=== PATIENT | female | born 1955 | race Two or more races ===

== ENCOUNTER 2020-03-26 09:04 | Inpatient (IN) | payer MEDICAID ==
[~2020-03-26] VITALS: Ht 157.5 cm; Wt 62.1 kg
--- NOTE | 2020-03-26 09:10 | NUR ---
BIB RA 41 FROM HOME,WORSENING BODY PAIN X 2 WEEKS, COUGHING DURING TRIAGE. iv access started. blood draw done sent to lab. seen by
--- NOTE | 2020-03-26 09:11 | NUR ---
placed on 2l nc satting at 98%
[2020-03-26] MEDS ORDERED: IBUPROFEN 400 MG TABLET PO ONE (09:30)
[2020-03-26] MEDS ORDERED: ACETAMINOPHEN 650 MG/SUPP.RECT RC ONE ×2 (09:30→09:32)
[2020-03-26] MEDS ORDERED: IBUPROFEN 400 MG TABLET ONE (09:32)
--- NOTE | 2020-03-26 09:45 | NUR ---
rapid influenza and covid swab done. sent to lab.
--- NOTE | 2020-03-26 10:05 | NUR ---
pt stated she is unable to provide urine specimen at the moment
[2020-03-26 10:13] LABS: BASOPHILS % (AUTO) 0.1 % (0.0-2.0); HEMATOCRIT 31 % (33-45); HEMOGLOBIN 10.1 g/dL (11.5-14.8); LYMPHOCYTES # (AUTO) 0.9 /CMM (0.8-4.8); LYMPHOCYTES % (AUTO) 5.5 % (20.0-44.0); MEAN CORPUSCULAR HGB CONC 33 g/dl (31.0-36.0); MEAN CORPUSCULAR VOLUME 91 fL (82-100); MONOCYTES # (AUTO) 0.8 /CMM (0.1-1.30); MONOCYTES % (AUTO) 4.6 % (2.0-12.0); NEUTROPHILS # (AUTO) 14.6 /CMM (1.8-8.9); NEUTROPHILS % (AUTO) 89.8 % (43.0-81.0); PLATELET COUNT (AUTO) 228 /CMM (150-450); RED BLOOD CELL COUNT(AUTO) 3.41 MIL/uL (4.0-5.2); WHITE BLOOD COUNT (AUTO) 16.3 K/uL (4.3-11.0)
[2020-03-26 10:30] LABS: D-DIMER 0.61 mg/L(FEU (0.17-0.50)
[2020-03-26] MEDS ORDERED: ACETAMINOPHEN 325 MG TABLET PO ONE (10:30)
[2020-03-26] MEDS ORDERED: ACETAMINOPHEN 325 MG TABLET ONE (10:46)
[2020-03-26 10:51] LABS: CALCIUM, SERUM 8.2 mg/dL (8.5-10.1); CARBON DIOXIDE 29 mmol/L (21-32); CHLORIDE 101 mmol/L (98-107); CREATININE 0.9 mg/dL (0.6-1.3); GLUCOSE 155 mg/dL (74-106); POTASSIUM 4.4 mmol/L (3.5-5.1); SODIUM SERUM 135 mmol/L (136-145); UREA NITROGEN, BLOOD 21 mg/dL (7-18)
[2020-03-26 10:52] LABS: CREATINE KINASE, TOTAL 849 U/L (26-192); FERRITIN 126 ng/mL (8-388)
[2020-03-26 10:56] LABS: ALANINE AMINOTRANSFERASE 32 U/L (12-78); ALBUMIN 2.8 g/dL (3.4-5.0); ALKALINE PHOSPHATASE 68 U/L (46-116); ASPARTATE AMINOTRANSFERASE 47 U/L (15-37); B-TYPE NATRIURETIC PEPTIDE 1501 PG/ML (0-125); BILIRUBIN,TOTAL 0.3 mg/dL (0.2-1.0); TOTAL PROTEIN, SERUM 6.2 g/dL (6.4-8.2)
[2020-03-26] MEDS ORDERED: CEFTRIAXONE 1GM BAG (ER ONLY) 50 ML IV ONE ×2 (11:30→11:42)
[2020-03-26] MEDS ORDERED: AZITHROMYCIN 500 MG in IV D5W 250 ML IV ONE (11:30)
--- NOTE | 2020-03-26 12:07 | NUR ---
urine collected sent to lab
[2020-03-26] MEDS ORDERED: HYDR-500 PO (12:29)
[2020-03-26] MEDS ORDERED: GABA300C PO (12:29)
[2020-03-26] MEDS ORDERED: TRAZ-257 PO (12:29)
[2020-03-26] MEDS ORDERED: FLUO20CA42 PO (12:29)
[2020-03-26 12:37] LABS: C-REACTIVE PROTEIN 33.6 mg/dL (0.0-0.9)
--- NOTE | 2020-03-26 13:37 | NUR ---
covid antigen collected sent to lab
--- NOTE | 2020-03-26 14:38 | NUR ---
NEERU PRINGLE ([facility]) [phone].
--- NOTE | 2020-03-26 14:45 | NUR ---
CALLED NURSING SUP FOR TELE BED.
--- NOTE | 2020-03-26 15:24 | NUR ---
LAB RESULT: COVID POSITIVE.
--- NOTE | 2020-03-26 19:50 | NUR ---
ATTEMPTED TO CALL TO GIVE REPORT, STAFF STATES THAT THE NURSES WERE NOT NOTIFIED.
--- NOTE | 2020-03-26 20:02 | NUR ---
ATTEMPTED TO GIVE REPORT AGAIN, NURSE IS CURRENTLY DISCHARGING A PATIENT, NURSE WILL CALL ME.
--- NOTE | 2020-03-26 20:21 | NUR ---
REPORT GIVEN TO CAROLIN BUTT FOR MEGHA.
[2020-03-26] MEDS ORDERED: ZOLPIDEM TARTRATE 5 MG TABLET PO PRN (20:30)
[2020-03-26 20:40] VITALS: BP 163/74
--- NOTE | 2020-03-26 20:40 | NUR ---
RN ADMITTING NOTE: Received report from ED nurse, Denilson. Patient was brought to the unit via wheelchair. Patient able to ambulate to bed with steady gait. Patient breathing even and unlabored on room air. No SOB or acute respiratory distress noted. Patient alert and oriented x4, able to make needs known. Oriented patient to room and taught the use of call light. Noted IV access on right AC, 18 gauge, intact and patent. Safety measure in place, bed is in the lowest level, bed is locked, side rails x2 are up, and call light is within reach. Will continue to monitor.
--- NOTE | 2020-03-26 20:46 | NUR ---
PATIENT TAKEN UP TO ASSIGNED ROOM FOR MEGHA.
[2020-03-26 21:00] VITALS: BP 163/74
[2020-03-26] MEDS: hydrOXYzine PAMOATE 25 MG CAPSULE PO SCH (23:03)
[2020-03-26] MEDS: DEXAMETHASONE SOD PHOSPHATE 10 MG/ML VIAL IV SCH (23:03)
[2020-03-27] VITALS (7 sets, daily range): BP systolic 116–171; BP diastolic 50–83
[2020-03-27] MEDS: ACETAMINOPHEN 650 MG/20.3 ML UDC NG PRN ×2 (00:28→11:08)
--- NOTE | 2020-03-27 00:28 | NUR ---
Patient temperature 101. Administered PRN tylenol per MD order. Also applied cooling measures.
[2020-03-27 07:57] LABS: HEMATOCRIT 31 % (33-45); HEMOGLOBIN 10.5 g/dL (11.5-14.8); LYMPHOCYTES # (AUTO) 0.4 /CMM (0.8-4.8); LYMPHOCYTES % (AUTO) 4.8 % (20.0-44.0); MEAN CORPUSCULAR HGB CONC 33 g/dl (31.0-36.0); MEAN CORPUSCULAR VOLUME 90 fL (82-100); MONOCYTES # (AUTO) 0.3 /CMM (0.1-1.30); MONOCYTES % (AUTO) 3.2 % (2.0-12.0); NEUTROPHILS # (AUTO) 8.6 /CMM (1.8-8.9); PLATELET COUNT (AUTO) 230 /CMM (150-450); RED BLOOD CELL COUNT(AUTO) 3.49 MIL/uL (4.0-5.2); WHITE BLOOD COUNT (AUTO) 9.3 K/uL (4.3-11.0)
--- NOTE | 2020-03-27 08:34 | NUR ---
RN CLOSING NOTE: Patient in bed resting comfortably. Patient breathing even and unlabored, no SOB or acute respiratory distress noted. Safety measure is maintained, bed is in the lowest level, bed is locked, side rails x2 are up, and call light is within reach. Endorsed to morning RN.
[2020-03-27] MEDS ORDERED: CEFTRIAXONE 1 G in IV D5W 50 ML IV SCH (09:00)
[2020-03-27] MEDS ORDERED: AZITHROMYCIN 250 MG TABLET PO SCH (09:00)
[2020-03-27 09:13] LABS: ALBUMIN 2.6 g/dL (3.4-5.0); BILIRUBIN,TOTAL 0.3 mg/dL (0.2-1.0); CALCIUM, SERUM 8.3 mg/dL (8.5-10.1); CREATININE 0.8 mg/dL (0.6-1.3); POTASSIUM 4.5 mmol/L (3.5-5.1); TOTAL PROTEIN, SERUM 6.6 g/dL (6.4-8.2)
[2020-03-27] MEDS ORDERED: REMDESIVIR (CHARGED) 200 MG, *LOADING DOSE 1 EA in IV NS 0.9% 210 ML IV ONE (09:30)
[2020-03-27] MEDS: hydrOXYzine PAMOATE 25 MG CAPSULE PO SCH ×3 (09:55→17:25)
[2020-03-27] MEDS: GABAPENTIN 300 MG CAPSULE PO SCH ×3 (09:55→17:25)
[2020-03-27] MEDS: FLUOXETINE HCL 20 MG CAPSULE PO SCH (09:55)
[2020-03-27 10:11] LABS: C-REACTIVE PROTEIN 38.9 mg/dL (0.0-0.9)
--- NOTE | 2020-03-27 10:43 | NUR ---
RN NOTES CALLED PHARMACY STILL AWAITING FOR ROCEPHIN AND ZITHROMAX AVAILABILITY.
[2020-03-27] MEDS: AZITHROMYCIN 250 MG TABLET PO SCH (10:52)
[2020-03-27] MEDS: CEFTRIAXONE 1 G in IV D5W 50 ML IV SCH (12:12)
--- NOTE | 2020-03-27 19:23 | NUR ---
DENTAL TECHNICIAN METAL NOTES PATIENT RESTING COMFORTABLY IN BED, ASLEEP. BUT AROUSABLE TO VERBAL AND TACTILE STIMULI. HOB ELEVATED. DENIES ANY C/O PAIN NOR DISCOMFORT. NO S/S OF RESPIRATORY DISTRESS. REMAIN ON ROOM AIR WITH SPO2 94%. RIGHT AC SL # 18 INTACT AND PATENT. BED ALARM ON.CALL LIGHT WITHIN REACH. ABLE TO VERBALIZE NEEDS. IN NO APPARENT DISTRESS.
--- NOTE | 2020-03-27 20:02 | NUR ---
RN OPENING NOTE: Patient in bed sleeping comfortably. Patient is breathing even and unlabored on room air, no SOB or acute respiratory distress. Noted IV access on right AC, 18 gauge, patent and intact. Safety measure is in place, bed is in the lowest level, bed is locked, side rails x2 are up, and call light is within reach. Will continue to monitor.
--- NOTE | 2020-03-27 21:52 | NUR ---
Critical lab resulted. CK-MB 7.1. Patient denies any pain or discomfort at this time. BP 138/50, HR 77, O2Sat 94%. Notified MD of lab result and assessment.
[2020-03-27] MEDS: DEXAMETHASONE SOD PHOSPHATE 10 MG/ML VIAL IV SCH (22:35)
--- NOTE | 2020-03-27 23:01 | NUR ---
Per , Dr. Zimmer, order total CPK in the AM lab. Read order back and carried out.
[2020-03-28] VITALS: BP 157/75
[2020-03-28] MEDS: ACETAMINOPHEN 650 MG/20.3 ML UDC NG PRN ×2 (00:24→11:04)
--- NOTE | 2020-03-28 00:24 | NUR ---
Patient is complaining of generalized body ache. Patient rates pain a 3 on a 0-10 numerical scale. Administered PRN Tylenol per MD order. Will continue to monitor.
[2020-03-28 04:00] VITALS: BP 150/71
[2020-03-28 06:54] LABS: BASOPHILS % (AUTO) 0.1 % (0.0-2.0); HEMATOCRIT 34 % (33-45); HEMOGLOBIN 11.2 g/dL (11.5-14.8); LYMPHOCYTES # (AUTO) 0.8 /CMM (0.8-4.8); LYMPHOCYTES % (AUTO) 8.8 % (20.0-44.0); MEAN CORPUSCULAR HGB CONC 33 g/dl (31.0-36.0); MEAN CORPUSCULAR VOLUME 90 fL (82-100); MONOCYTES # (AUTO) 0.6 /CMM (0.1-1.30); MONOCYTES % (AUTO) 6.6 % (2.0-12.0); NEUTROPHILS # (AUTO) 7.2 /CMM (1.8-8.9); NEUTROPHILS % (AUTO) 84.5 % (43.0-81.0); PLATELET COUNT (AUTO) 284 /CMM (150-450); WHITE BLOOD COUNT (AUTO) 8.6 K/uL (4.3-11.0)
--- NOTE | 2020-03-28 07:35 | NUR ---
RN NOTES RECEIVED PATIENT IN BED, ASLEEP, AROUSABLE TO VERBAL AND TACTILE STIMULI. NO SOB. RESTING COMFORTABLY IN BED. ABLE TO VERNALIZE NEEDS. REMAINS STABLE AT THIS TIME.
[2020-03-28 07:50] LABS: C-REACTIVE PROTEIN 20.6 mg/dL (0.0-0.9)
--- NOTE | 2020-03-28 07:56 | NUR ---
RN CLOSING NOTE: Patient resting in bed comfortably. Patient is breathing even and unlabored. No SOB or acute respiratory distress noted. Safety measure maintained; bed is in the lowest level, bed is locked, alarm is on, side rails x2 are up, and call light is within reach. Endorsed to AM nurse.
[2020-03-28 08:00] VITALS: BP 165/85
[2020-03-28 08:23] LABS: ALBUMIN 2.5 g/dL (3.4-5.0); BILIRUBIN,TOTAL 0.2 mg/dL (0.2-1.0); CALCIUM, SERUM 8.5 mg/dL (8.5-10.1); CREATININE 0.9 mg/dL (0.6-1.3); POTASSIUM 4.5 mmol/L (3.5-5.1); TOTAL PROTEIN, SERUM 6.6 g/dL (6.4-8.2)
[2020-03-28] MEDS: AZITHROMYCIN 250 MG TABLET PO SCH (09:11)
[2020-03-28] MEDS: FLUOXETINE HCL 20 MG CAPSULE PO SCH (09:11)
[2020-03-28] MEDS: GABAPENTIN 300 MG CAPSULE PO SCH ×3 (09:11→17:00)
[2020-03-28] MEDS: hydrOXYzine PAMOATE 25 MG CAPSULE PO SCH ×3 (09:12→17:00)
[2020-03-28] MEDS ORDERED: REMDESIVIR (CHARGED) 100 MG in IV NS 0.9% 230 ML IV SCH (09:30)
[2020-03-28] MEDS: CEFTRIAXONE 1 G in IV D5W 50 ML IV SCH (12:00)
[2020-03-28] MEDS: ENOXAPARIN SODIUM 40 MG/0.4 ML DISP.SYRIN SQ SCH (14:30)
[2020-03-28 16:00] VITALS: BP 159/89
--- NOTE | 2020-03-28 19:45 | NUR ---
RETAIL CLIENT SOLUTIONS ANALYST NOTES PATIENT RESTING COMFORTABLY IN BED, ASLEEP. BUT AROUSABLE TO VERBAL AND TACTILE STIMULI. HOB ELEVATED. DENIES ANY C/O PAIN NOR DISCOMFORT. NO S/S OF RESPIRATORY DISTRESS. REMAIN ON ROOM AIR WITH SPO2 94%. RIGHT AC SL # 18 INTACT AND PATENT. BED ALARM ON.CALL LIGHT WITHIN REACH. ABLE TO VERBALIZE NEEDS. IN NO APPARENT DISTRESS.
[2020-03-28 20:00] VITALS: BP 162/81
--- NOTE | 2020-03-28 20:57 | NUR ---
RN OPENING NOTES PATIENT RECEIVED RESTING IN BED A/O X 4. STABLE ON RA WITH BREATHING EVEN AND UNLABORED, NO SOB NOTED. NO SIGNS OF ACUTE DISTRESS. NO COMPLAINTS OF PAIN OR DISCOMFORT AT THE MOMENT. IV LOCATED ON R AC #18 PATENT AND INTACT. SAFETY PRECAUTIONS IN PLACE WITH BED IN LOWEST POSITION, CALL LIGHT WITHIN REACH, BREAKS ON, SIDE RAILS UP.
[2020-03-28] MEDS: TRAZODONE 50 MG TABLET PO PRN (21:15)
[2020-03-28] MEDS: DEXAMETHASONE SOD PHOSPHATE 10 MG/ML VIAL IV SCH (21:18)
[2020-03-29] VITALS: BP_SYST 150; BP_DIAS 78; BP_DIAS 98
[2020-03-29 04:00] VITALS: BP_SYST 157; BP_DIAS 82; BP_DIAS 84
--- NOTE | 2020-03-29 06:57 | NUR ---
RN CLOSING NOTES PATIENT RESTING IN BED A/O X 3. STABLE ON RA WITH BREATHING EVEN AND UNLABORED, NO SOB NOTED. NO SIGNS OF ACUTE DISTRESS. NO COMPLAINTS OF PAIN OR DISCOMFORT AT THE MOMENT. IV LOCATED ON R AC #18 PATENT AND INTACT. SAFETY PRECAUTIONS IN PLACE WITH BED IN LOWEST POSITION, CALL LIGHT WITHIN REACH, BREAKS ON, SIDE RAILS UP. ALL NEEDS ATTENDED TO. WILL ENDORSE TO ONCOMING SHIFT ABOUT MEGHA.
--- NOTE | 2020-03-29 07:40 | NUR ---
TELE/RN OPENING NOTES RECEIVED PATIENT ON BED. NO APPARENT RESPIRATORY DISTRESS NOTED. NO COMPLAINED OF PAIN AT THIS TIME. WILL CONTINUE TO MONITOR.
[2020-03-29 08:00] VITALS: BP 125/74
[2020-03-29] MEDS: GABAPENTIN 300 MG CAPSULE PO SCH ×3 (09:51→17:53)
[2020-03-29] MEDS: FLUOXETINE HCL 20 MG CAPSULE PO SCH (09:51)
[2020-03-29] MEDS: hydrOXYzine PAMOATE 25 MG CAPSULE PO SCH ×3 (09:51→17:53)
[2020-03-29] MEDS: ENOXAPARIN SODIUM 40 MG/0.4 ML DISP.SYRIN SQ SCH (09:52)
[2020-03-29] MEDS: AZITHROMYCIN 250 MG TABLET PO SCH (10:02)
[2020-03-29] MEDS: CEFTRIAXONE 1 G in IV D5W 50 ML IV SCH (12:08)
[2020-03-29 16:00] VITALS: BP 141/71
[2020-03-29 20:00] VITALS: BP 134/58
--- NOTE | 2020-03-29 20:43 | NUR ---
RN CLOSING NOTES PATIENT RESTING IN BED A/O X 3. STABLE ON RA WITH BREATHING EVEN AND UNLABORED, NO SOB NOTED. NO SIGNS OF ACUTE DISTRESS. NO COMPLAINTS OF PAIN OR DISCOMFORT AT THE MOMENT. IV LOCATED ON R AC #18 PATENT AND INTACT. SAFETY PRECAUTIONS IN PLACE WITH BED IN LOWEST POSITION, CALL LIGHT WITHIN REACH, BREAKS ON, SIDE RAILS UP. ALL NEEDS ATTENDED TO. WILL ENDORSE MASSAGE THERAPIST FOR MEGHA.
[2020-03-29] MEDS: DEXAMETHASONE SOD PHOSPHATE 10 MG/ML VIAL IV SCH (22:18)
[2020-03-29] MEDS: TRAZODONE 50 MG TABLET PO PRN (22:25)
[2020-03-30] VITALS: BP 130/56
[2020-03-30 04:00] VITALS: BP 139/68
[2020-03-30] MEDS: ACETAMINOPHEN 650 MG/20.3 ML UDC NG PRN ×2 (05:27→20:44)
[2020-03-30 07:54] LABS: HEMATOCRIT 37 % (33-45); HEMOGLOBIN 11.6 g/dL (11.5-14.8); LYMPHOCYTES # (AUTO) 0.9 /CMM (0.8-4.8); LYMPHOCYTES % (AUTO) 16.5 % (20.0-44.0); MEAN CORPUSCULAR HGB CONC 32 g/dl (31.0-36.0); MEAN CORPUSCULAR VOLUME 92 fL (82-100); MONOCYTES # (AUTO) 0.7 /CMM (0.1-1.30); MONOCYTES % (AUTO) 13.4 % (2.0-12.0); NEUTROPHILS # (AUTO) 3.9 /CMM (1.8-8.9); NEUTROPHILS % (AUTO) 70.1 % (43.0-81.0); PLATELET COUNT (AUTO) 374 /CMM (150-450); RED BLOOD CELL COUNT(AUTO) 4.01 MIL/uL (4.0-5.2); WHITE BLOOD COUNT (AUTO) 5.6 K/uL (4.3-11.0)
[2020-03-30 07:58] LABS: POTASSIUM 4.6 mmol/L (3.5-5.1)
[2020-03-30 08:00] VITALS: BP 139/81
--- NOTE | 2020-03-30 08:00 | NUR ---
ms rn received on bed, awake,alert,oriented x4,not in any form of distress, respirations even and unlabored,no sob nboted, lungs are clear,abdoemn soft,positive bowel sounds,denies pain at this time,all needs attended.
[2020-03-30 08:08] LABS: C-REACTIVE PROTEIN 5.3 mg/dL (0.0-0.9)
--- NOTE | 2020-03-30 10:00 | NUR ---
ms patrick breakfast served,due meds given,tolerated well,will monitor patient.
[2020-03-30] MEDS: GABAPENTIN 300 MG CAPSULE PO SCH ×3 (10:16→16:42)
[2020-03-30] MEDS: AZITHROMYCIN 250 MG TABLET PO SCH (10:17)
[2020-03-30] MEDS: hydrOXYzine PAMOATE 25 MG CAPSULE PO SCH ×3 (10:17→16:42)
[2020-03-30] MEDS: FLUOXETINE HCL 20 MG CAPSULE PO SCH (10:17)
[2020-03-30] MEDS: ENOXAPARIN SODIUM 40 MG/0.4 ML DISP.SYRIN SQ SCH (10:19)
[2020-03-30] MEDS: CEFTRIAXONE 1 G in IV D5W 50 ML IV SCH (11:16)
[2020-03-30 16:00] VITALS: BP 130/78
--- NOTE | 2020-03-30 18:00 | NUR ---
ms rn on bed, no distress noted,for d/c plan in am.
[2020-03-30 20:00] VITALS: BP 123/59
--- NOTE | 2020-03-30 20:00 | NUR ---
rn note received pt in bed, a/a/o x4, pt has unlabored breathong no s/s of distress. safety measures in place.
[2020-03-30] MEDS: DEXAMETHASONE SOD PHOSPHATE 10 MG/ML VIAL IV SCH (22:54)
[2020-03-30] MEDS: TRAZODONE 50 MG TABLET PO PRN (23:45)
--- NOTE | 2020-03-31 07:30 | NUR ---
pt remained stable, report given to incoming shift for xiomara.
--- NOTE | 2020-03-31 07:30 | NUR ---
TELE/RN OPENING NOTE Patient resting in bed, A&O x 4. No complaints of pain/discomfort at this time. Breathing even and non-labored on RA, no SOB noted. No cardiac distress noted, on tele monitor reading SR 69. IV access noted on RAC #18 g, patent and intact, and flushing well. Right wrist splint in place. Sensation and circulation from all peripheral extremities intact. Bed locked to its lowest position, side rails x 2 up, call light in hand. Will continue with current medical management.
[2020-03-31 08:00] VITALS: BP 118/67
--- NOTE | 2020-03-31 08:00 | NUR ---
TELE/RN NOTE Upon explaining doctor's discharge orders to patient, patient states "nobody is able to take care of me, my roommate is not able to and I don't think I am confident to take care of myself." Notified Dr. Zimmer, ordered case management consult for SNF placement. Directed orders to patient, patient verbalizes understanding.
[2020-03-31] MEDS ORDERED: AMOX-430 PO (09:00)
[2020-03-31] MEDS ORDERED: DEXA6TAB6 PO (09:00)
[2020-03-31] MEDS: ACETAMINOPHEN 650 MG/20.3 ML UDC NG PRN (09:22)
[2020-03-31] MEDS: hydrOXYzine PAMOATE 25 MG CAPSULE PO SCH ×3 (09:23→17:35)
[2020-03-31] MEDS: FLUOXETINE HCL 20 MG CAPSULE PO SCH (09:23)
[2020-03-31] MEDS: AZITHROMYCIN 250 MG TABLET PO SCH (09:23)
[2020-03-31] MEDS: ENOXAPARIN SODIUM 40 MG/0.4 ML DISP.SYRIN SQ SCH (09:24)
[2020-03-31] MEDS: GABAPENTIN 300 MG CAPSULE PO SCH ×3 (09:36→17:35)
[2020-03-31 12:00] VITALS: BP 133/67
[2020-03-31] MEDS: CEFTRIAXONE 1 G in IV D5W 50 ML IV SCH (13:49)
--- NOTE | 2020-03-31 19:20 | NUR ---
BLOOD DONOR UNIT ASSISTANT OPENING NOTES PATIENT AWAKE IN BED. A/OX4. ON RA; NO S/S OF ACUTE RESPIRATORY DISTRESS; BREATHING IS EVEN AND UNLABORED. NO C/O PAIN AT THIS TIME. TELE MONITOR READING NSR, HEART RATE 66. IV PRESENT ON RIGHT HAND, SIZE 18, INTACT & PATENT, HEP LOCKED. RIGHT WRIST SPLINT PRESENT. CONTACT/DROPLET PRECAUTIONS IN PLACE FOR POSITIVE COVID 19. SAFETY MEASURES IN PLACE AND PATIENT'S NEEDS MET. BED LOCKED, SIDE RAILS X2, CALL LIGHT WITHIN REACH. WILL CONTINUE TO MONITOR.
--- NOTE | 2020-03-31 19:30 | NUR ---
TELE/RN CLOSING NOTE Patient resting in bed, A&O x 4. All needs met and attended to. No complaints of pain/discomfort at this time. Breathing even and non-labored on RA, no SOB noted. No cardiac distress noted, on tele monitor reading SR 83. IV access noted on RAC #18 g, patent and intact, and flushing well. Right wrist splint in place. Sensation and circulation from all peripheral extremities intact. Fall precautions maintained, will endorse to night clerk auditor.
[2020-03-31 20:00] VITALS: BP 114/50
[2020-03-31] MEDS: DEXAMETHASONE SOD PHOSPHATE 10 MG/ML VIAL IV SCH (22:20)
[2020-03-31] MEDS: TRAZODONE 50 MG TABLET PO PRN (23:11)
[2020-04-01] VITALS: BP_SYST 120; BP_SYST 136; BP_DIAS 54; BP_DIAS 83
[2020-04-01 04:00] VITALS: BP 135/66
[2020-04-01 06:34] VITALS: BP 135/75
--- NOTE | 2020-04-01 07:40 | NUR ---
MITER SAWYER CLOSING NOTES PATIENT SLEEPING, AWAKENS TO NAME. A/OX4. ON RA; NO S/S OF DISTRESS NOTED. TELE MONITOR READING NSR. IV PRESENT ON RIGHT HAND, SIZE 18, INTACT & PATENT, HEP LOCKED. SAFETY MEASURES IN PLACE AND PATIENT'S NEEDS MET. BED LOCKED, SIDE RAILS X2, CALL LIGHT WITHIN REACH. ENDORSED TO DAY SHIFT RN PLAN OF CARE.
[2020-04-01 08:00] VITALS: BP 110/65
--- NOTE | 2020-04-01 08:00 | NUR ---
RN NOTES PATIENT SLEEPING, AWAKENS TO NAME. A/OX4. ON RA; NO S/S OF DISTRESS NOTED. TELE MONITOR READING NSR. IV PRESENT ON RIGHT HAND, SIZE 18, INTACT & PATENT, HEP LOCKED. SAFETY MEASURES IN PLACE AND PATIENT'S NEEDS MET. BED LOCKED, SIDE RAILS X2, CALL LIGHT WITHIN REACH.
[2020-04-01] MEDS: AZITHROMYCIN 250 MG TABLET PO SCH (10:10)
[2020-04-01] MEDS: GABAPENTIN 300 MG CAPSULE PO SCH ×3 (10:11→17:39)
[2020-04-01] MEDS: FLUOXETINE HCL 20 MG CAPSULE PO SCH (10:11)
[2020-04-01] MEDS: hydrOXYzine PAMOATE 25 MG CAPSULE PO SCH ×3 (10:11→17:39)
[2020-04-01] MEDS: ENOXAPARIN SODIUM 40 MG/0.4 ML DISP.SYRIN SQ SCH (10:12)
[2020-04-01] MEDS: ACETAMINOPHEN 650 MG/20.3 ML UDC NG PRN (10:13)
[2020-04-01 12:00] VITALS: BP 116/71
[2020-04-01] MEDS: CEFTRIAXONE 1 G in IV D5W 50 ML IV SCH (12:23)
--- NOTE | 2020-04-01 16:35 | NUR ---
RN NOTES CALLED PT [facility]REFERRED [facility] [address] [facility] THEY WILL DELIVER HER PRESCRIBED MEDICATIONS TOMORROW TO HER HOME SPOKE WITH TAJ
--- NOTE | 2020-04-01 17:41 | NUR ---
DISCHARGED PT HOME WITH HOME HEALTH WITH STABLE V/S VIA AMBULANCE. PT'S O2 SAT WAS 91 %ON ROOM AIR WITH NO C/O SOB.PT IS COVID POSITIVE AND DENIES DISTRESS.PT IS NOT QUALIFIED TO HAVE O2 DELIVERY [facility]% O2 SAT ON ROOM AIR.IV H/L REMOVED TO RT AC WITH NO BLEEDING,REDNESS OR SWELLING NOTED. RT WRIST SPLINT REMAINS INTACT WITH GOOD PULSE AND CIRCULATION ON THE RT HAND.CALLED PT'S PREFERRED [facility] AND FAXED IT TO [facility] TO HAVE THE PRESCRIBED AUGMENTIN [phone] AND DECADRON TABS ORDERED.
== END 2020-04-01 19:44 | disposition home health service (06) | DRG 137 ==
LOC: ER 09:14 → TELE2 20:22
PROVIDERS: ADMIT Internal Medicine; ATTEND Internal Medicine
PROC: XW033E5 Introduction of Remdesivir Anti-infective into Peripheral Vein, Percutaneous Approach, New Technology Group 5 (ICD-10-PCS; principal; 2020-03-27)
DX: U07.1 COVID-19 (principal); J12.89 Other viral pneumonia; F32.9 Major depressive disorder, single episode, unspecified; M21.331 Wrist drop, right wrist; I25.2 Old myocardial infarction; Z79.899 Other long term (current) drug therapy; J15.9 Unspecified bacterial pneumonia; G56.31 Lesion of radial nerve, right upper limb; R09.02 Hypoxemia
CPT/HCPCS: 36415; 71045-TC; 71250-TC; 73110; 80048-TC; 80053-TC; 82550-TC; 82553; 82728-TC; 83605-TC; 83615-TC; 83880; 84484-TC; 85025-TC; 85378-TC; 85385-TC; 86140-TC; 87040-TC; 87081-TC; 97112-TC; 97116-TC; 97530-TC; C9803; G0378; J0456; J0696; J1100; J1650; J7060; Q0177; U0003